=== PATIENT | female | born 1975 | race Two or more races ===

== ENCOUNTER 2024-09-22 10:35 | Emergency (ER) | payer MEDICAID, SELFPAY ==
[2024-09-22 10:55] VITALS: BP 122/83; PULSE 100; RESP 20; TEMP 36.9; O2SAT 96; BMI 39.6
--- NOTE | 2024-09-22 11:16 | PD.EDRME ---
Rapid Medical Screening Exam RME Arrival date/time: 09/22/24 10:35 Chief Complaint: Abdominal Pain Time Seen by Provider: 09/22/24 10:56 Vital signs: Vital Signs Temperature 98.5 F 09/22/24 10:55 Pulse Rate 100 09/22/24 10:55 Respiratory Rate 20 09/22/24 10:55 Blood Pressure 122/83 09/22/24 10:55 Pulse Oximetry (%) 96 09/22/24 10:55 Oxygen Delivery Method Room Air 09/22/24 10:55 Vital signs reviewed by provider: Yes RME Narrative: 49-year-old female with past medical history of GERD presents for evaluation of right upper quadrant pain x3 days. She describes as sharp with radiation to her pelvic region. She endorses nausea without emesis. Denies history of gallbladder disorder.
--- NOTE | 2024-09-22 11:40 | PC.NURSE ---
NO ANSWER IN LOBBY
--- NOTE | 2024-09-22 12:00 | PC.NURSE ---
NO ANSWER IN LOBBY
--- NOTE | 2024-09-22 12:08 | PC.NURSE ---
NO ANSWER IN LOBBY X3
== END 2024-09-22 12:12 | disposition left against medical advice (07) ==
PROVIDERS: Emergency Provider Emergency Medicine; PCP Physician Assistant
DX: R10.11 Right upper quadrant pain (principal); R11.0 Nausea; Z53.29 Procedure and treatment not carried out because of patient's decision for other reasons
CPT/HCPCS: 80053; 81001; 81025; 83690; 85025; 99281

== ENCOUNTER 2024-11-25 13:25 | Emergency (ER) | payer MEDICAID, SELFPAY ==
[2024-11-25 13:53] VITALS: BP 116/81; PULSE 94; RESP 20; TEMP 36.9; O2SAT 98; BMI 38.0
--- NOTE | 2024-11-25 14:21 | XR_ITS ---
Examination: Lumbar spine 3 views Technique one AP lateral coned lateral lower lumbar spine 3 views Exam date and time: November 25, 2024 1504 hours INDICATIONS: Low back pain beginning this morning. FINDINGS: Adequate alignment lumbar vertebral bodies No lumbar fracture Diffuse [id number]-gh-[id number] lumbar degenerative disc disease, most severe at L4-L5 No spondylolisthesis IMPRESSION: Diffuse [id number]-[id number] lumbar degenerative disc disease, most prominent L4-L5
--- NOTE | 2024-11-25 14:22 | EDNOTE_ITS ---
ED Back Injury Pain RME/HPI General Chief Complaint: Back Pain/Injury Stated Complaint: RIGHT LOWER BACK PAIN RAD TO RLQ ABD Time Seen by Provider: 11/25/24 14:19 Arrival date/time: 11/25/24 13:25 49-year-old female with no history of chronic back pain or renal stones reports with complaints of right-sided lower back pain that began this morning. Patient denies any injury heavy lifting pushing or pulling dysuria urinary urgency frequency or hematuria. Patient also denies taking any medications for the pain Limitations: no limitations Related Data Home Medications ?Medication ?Instructions ?Recorded ?Confirmed Amitriptyline Hcl 25 mg PO QDAY ##30 02/15/17 03/29/19 Pantoprazole Sodium 40 mg PO QDAY ##30 02/15/17 03/29/19 baclofen 20 mg tablet 20 mg PO TID ##90 02/15/17 03/29/19 loratadine 10 mg tablet 10 mg PO QDAY ##30 02/15/17 03/29/19 sumatriptan succinate 100 mg tablet 100 mg PO QDAY PRN HEADACHE 02/15/17 03/29/19 (MIGRAINE) ##9 topiramate 25 mg tablet 25 mg PO HS ##60 02/15/17 03/29/19 Previous Rx's ?Medication ?Instructions ?Recorded loratadine 10 mg tablet (Claritin) 10 mg PO QDAY PRN allergy symptoms 03/29/19 #20 tabs prednisolone sodium phosphate 10 10 mg PO QAM #3 tabs 03/29/19 mg disintegrating tablet ibuprofen 600 mg tablet 600 mg PO Q8H PRN fever or pain 03/13/24 #20 tabs Allergies Allergy/AdvReac Type Severity Reaction Status Date / Time No Known Allergies Allergy Verified 09/22/24 10:36 Review of Systems Constitutional Constitutional: Denies chills and Denies fever(s) Gastrointestinal Gastrointestinal: Denies abdominal pain, Denies nausea and Denies vomiting Genitourinary Genitourinary: Denies abnormal menses, Denies difficulty voiding, Denies dysuria, Reports flank pain, Denies hematuria and Denies pelvic pain Musculoskeletal Musculoskeletal: Reports back pain, Denies deformity, Denies numbness and Denies tingling Integumentary/Breasts Skin/Breast: Denies rash and Denies skin pain Neurologic Neurologic: Denies numbness and Denies tingling Hematologic/Lymphatic Hematologic/Lymphatic: Denies easy bleeding and Denies easy bruising Past Medical History Past Medical History CARDIAC: Negative Congestive Heart Failure RESPIRATORY: Negative Chronic Obstructive Pulmonary Disease (COPD) GENITOURINARY: Negative Renal Disease ENDOCRINE: Negative Diabetes Mellitus Type 1 or Diabetes Mellitus Type 2 Social History SMOKING STATUS: Light (< 1 pack/day) ED Exam General Limitations: Present no limitations General appearance: Present alert and in no apparent distress Abdominal Exam Abdominal exam: Present soft and normal bowel sounds Extremities Exam Extremities exam: Present normal inspection and full ROM Back Exam Back exam: Present normal inspection, full ROM, tenderness (Approximately L4-L5 right side extending along sciatic nerve to right pelvis) and straight leg raise (R); Absent CVA tenderness (R), CVA tenderness (L) or straight leg raise (L) Neurological Exam Neurological exam: Present alert, oriented X3 and CN II-XII intact Psychiatric Psychiatric exam: Present normal affect and normal mood Skin Skin exam: Present warm, dry, intact and normal color Course Course Course Narrative: 49-year-old female reports with complaints of lower back pain. X-ray of the lumbar spine shows some disc degeneration but otherwise unremarkable x-ray, urinalysis is negative for evidence of infection. Patient stable nontoxic- appearing with stable vital signs will be discharged home with pain medication and advised follow-up primary care provider. Quality Measures none Orders Category Date Time Status XR lumbar spine 2-3V Stat Exams 11/25/24 14:21 Completed UA, C/S IF [Urinalysis, C/S if Indicated] Stat Lab 11/25/24 15:06 Completed Vital Signs Vital signs: Vital Signs Temperature 98.5 F 11/25/24 13:53 Pulse Rate 94 11/25/24 13:53 Respiratory Rate 20 11/25/24 13:53 Blood Pressure 116/81 11/25/24 13:53 Pulse Oximetry (%) 98 11/25/24 13:53 Oxygen Delivery Method Room Air 11/25/24 13:53 Back Pain / Injury Patient data External records reviewed:: None Clinical information provided by:: patient Social determinants that could affect healthcare access:: none Patient has the following chronic illnesses:: none How is presenting disease/condition affected by chronic disease/condition?: no chronic disease Evaluation data The following diagnostics were reviewed and interpreted by me:: radiology exam(s) Lab and/or radiology exams considered but not ordered:: degenerative disc Interpretation Summary: Degenerative disc disease Medications / Prescriptions Medications or Prescriptions considered but not ordered:: none Medication administrations:: None Consultations Consultation(s) initiated? (list below): No Diagnosis Most likely diagnosis given after review of the tests above:: lumbar strain Admission Indicated Admission indicated?: not indicated Admission Request Was there a request for admission?: No Disposition Plan Disposition Plan: Discharge Discharge Attestation Discharge Attestation: The patient and all family members were given an opportunity to ask questions and understood the discharge instructions. Discharge instructions specifically effects, indications for sooner follow up or return to the emergency department, and the expected course of current diagnosis. Patient condition: Stable Discharge Plan Plan Patient Disposition: HOME (Self Care) Prescriptions/Referrals Prescriptions/Med Rec: No Action Amitriptyline Hcl 25 MG tablet 25 mg PO QDAY Qty: 30 sumatriptan succinate 100 MG tablet 100 mg PO QDAY PRN (Reason: HEADACHE (MIGRAINE)) Qty: 9 topiramate 25 MG tablet 25 mg PO HS Qty: 60 baclofen 20 MG tablet 20 mg PO TID Qty: 90 loratadine 10 MG tablet 10 mg PO QDAY Qty: 30 Pantoprazole Sodium 40 MG TABLET.DR 40 mg PO QDAY Qty: 30 loratadine [Claritin] 10 mg tablet 10 mg PO QDAY PRN (Reason: allergy symptoms) Qty: 20 0RF prednisolone sodium phosphate 10 mg tablet,disintegrating 10 mg PO QAM Qty: 3 0RF ibuprofen 600 mg tablet 600 mg PO Q8H PRN (Reason: fever or pain) Qty: 20 0RF Referrals: Hugo Pickard PA-C [Primary Care Provider] - In 1 week Problem List Clinical Impression: DDD (degenerative disc disease), lumbar, Acute lumbar myofascial strain Patient/Caregiver Discharge Instructions Discharge Activity: activity as tolerated Education Materials: ED Degenerative Disk Disease Additional Instructions: Take gwaz-yzn-[id number] medications as ibuprofen or Tylenol as needed for pain follow-up with primary care provider if no improvement in 3 days Print Language: Belarusian Stand Alone Forms: Vilma Award Info., Patient Portal Info Letter
[2024-11-25 15:29] LABS: Collection Type, Urine Clean Catch
[2024-11-25 15:41] LABS: Bilirubin,Urine Negative (Negative); Blood,Urine Negative (Negative); Clarity,Urine Clear (Clear/Hazy); Color,Urine Lt-Yellow (Lt Yel-Yel); Culture Indicated,Urine Not Indicated; Glucose, Urine Negative (Negative); Ketones,Urine Negative (Negative); Leukocyte Esterase,Urine Negative (Negative); Nitrite,Urine Negative (Negative); PH,Urine 6.5 (5.0-7.0); Protein,Urine Negative (Neg - Trace); RBC,Urine 2 /hpf (0-3); Specific Gravity,Urine 1.012 (1.001-1.035); Squamous Epithelial Cell,Urine 2 /hpf (0-5); Urobilinogen,Urine Negative mg/dL (0.0-1.0); WBC,Urine 1 /hpf (0-5)
== END 2024-11-25 17:00 | disposition home or self-care (01) ==
PROVIDERS: Physician Assistant; Emergency Provider Emergency Medicine; PCP Physician Assistant
DX: S39.012A Strain of muscle, fascia and tendon of lower back, initial encounter (principal); M51.360 Other intervertebral disc degeneration, lumbar region with discogenic back pain only; X58.XXXA Exposure to other specified factors, initial encounter
CPT/HCPCS: 72100; 81001; 99283

== ENCOUNTER 2025-08-09 05:50 | Emergency (ER) | payer MEDICAID, SELFPAY ==
[2025-08-09 05:51] VITALS: BMI 43.4
[2025-08-09 06:02] VITALS: BP 111/77; PULSE 99; RESP 19; TEMP 36.6; O2SAT 98
--- NOTE | 2025-08-09 06:20 | EDNOTE_ITS ---
ED Back Injury Pain RME/HPI General Chief Complaint: Back Pain/Injury Stated Complaint: RIGHT LOWER BACK PAIN RADIATING TO HIP Time Seen by Provider: 08/09/25 06:07 Arrival date/time: 08/09/25 05:50 RME / HPI RME / HPI Narrative: 50-year-old female with a past medical history of disc herniation noted on MRI earlier this year who is complaining of increased pain similar nature to her typical pain after moving some furniture 2 weeks ago. Pain is worse with bending over. Patient states she has tried her baclofen which her doctor has prescribed her for this without relief and she has a follow-up appointment with her doctor this coming week. Patient was doing physical therapy about 3 months ago with minimal relief. Denies any numbness, tingling, weakness, urinary or stool retention or incontinence, fever, vomiting, dysuria, frequency, urgency, burning with urination. Related Data Home Medications ?Medication ?Instructions ?Recorded ?Confirmed Amitriptyline Hcl 25 mg PO QDAY ##30 02/15/17 03/29/19 Pantoprazole Sodium 40 mg PO QDAY ##30 02/15/17 03/29/19 baclofen 20 mg tablet 20 mg PO TID ##90 02/15/17 0 03/29/19 loratadine 10 mg tablet 10 mg PO QDAY ##30 02/15/17 03/29/19 sumatriptan succinate 100 mg tablet 100 mg PO QDAY PRN HEADACHE 02/15/17 03/29/19 (MIGRAINE) ##9 topiramate 25 mg tablet 25 mg PO HS ##60 02/15/17 Previous Rx's ?Medication ?Instructions ?Recorded loratadine 10 mg tablet (Claritin) 10 mg PO QDAY PRN a llergy symptoms 03/29/19 #20 tabs prednisolone sodium phosphate 10 10 mg PO QAM #3 tabs 03/29/19 mg disintegrating tablet ibuprofen 600 mg tablet 600 mg PO Q8H PRN fever or p ain 03/13/24 #20 tabs methylprednisolone 4 mg tablets in 4 mg PO QAM #21 tab s 08/09/25 a dose pack (Medrol (Félix)) Allergies Allergy/AdvReac Type Severity Reaction Status Date / Time No Known Allergies Allergy Verified 08/09/25 05:50 ED Exam Narrative Physical exam: Constitutional: Patient alert and oriented. Well appearing. No acute distress. Not toxic appearing. Head: Normocephalic, atraumatic. Eyes: Conjunctiva clear bilaterally. Mouth/Throat: Mucous membranes moist. No stridor or muffled voice. Handling secretions without difficulty. Neck: Supple. Trachea midline. No JVD. No nuchal rigidity. No midline tenderness or step-offs. Normal range of motion. Respiratory: Normal effort. Lungs clear to auscultation bilaterally without rhonchi, wheezes, or crackles. Cardiovascular: RRR. Normal S1/S2. No murmurs or rubs. Radial pulses intact bilaterally. Abdomen: Soft. Non-distended. Non-tender throughout. No pulsatile mass. No guarding or rebound. Back: No midline tenderness or step-offs. No CVA tenderness bilaterally. Positive right sided paralumbar tenderness to palpation. Upper Extremities: No gross deformities. No focal motor deficits bilaterally. Lower Extremities: Heel-toe gait intact without difficulty. Deep tendon reflexes 2+ symmetric for lower extremities bilaterally. No gross deformities. No edema or calf tenderness. No focal motor or sensory deficits bilaterally. Neuro: Speech normal. CN II?XII grossly intact. GCS 15. Skin: Warm, dry, normal color. Psych: Normal affect. Cooperative. Normal insight. Course Course Course Narrative: MDM: Musculoskeletal Low Back Pain This patient presents with acute low back pain most consistent with musculoskeletal strain or spasm. Pain is localized without radiation, paresthesia, or weakness. No bowel or bladder incontinence.No acute neurologic d eficits. Doubt cauda equina syndrome, spinal cord compression, infection, trauma, malignancy, dissection, or nephrolithiasis based on history, exam, and absence of red flag symptoms. Doubt renal colic, pyelonephritis, or obstructive uropathy?pain localized to lower back without flank radiation or CVA tenderness. Advanced imaging (CT/MRI) considered but not indicated given absence of neurologic deficits or high-risk features. Plan: Symptomatic management with nsaids,steroids, stretching, and activity as tolerated. Discussed medication precautions and return precautions for worsening pain, fever, new weakness, numbness, or bowel/bladder changes. Advised follow-up with PCP within 1?2 days for reassessment. UA not obtained as pt states no urinary symptoms and had a negative UA at onset of pain when seen by her PMD; no systemic symptoms. Quality Measures none Orders Category Date Time Status Acetaminophen Tab [Tylenol Tab] Med 08/09/25 06:18 Discontinued 650 mg PO X1 ONE Ibuprofen Tab [Motrin Tab] Med 08/09/25 06:18 Discontinued 600 mg PO X1 ONE Lidocaine 5% Patch Med 08/09/25 06:18 Discontinued 1 patch TOP X1 ONE Reevaluation(s) Reevaluation #1: At the time of reassessment, the patient remains alert and oriented ?3 with GCS 15. Vitals are normal, pain is controlled, and the patient is tolerating oral intake without nausea or vomiting. The patient is agreeable to discharge and v erbalizes understanding of the diagnosis, studies, treatment plan, medications (including side effects/precautions), and strict ER return precautions as discussed in the ED. All concerns were addressed, and the patient is comfortable with the plan. Vital Signs Vital signs: Vital Signs Temperature 97.8 F 08/09/25 06:02 Pulse Rate 99 08/09/25 06:02 Respiratory Rate 19 08/09/25 06:02 Blood Pressure 111/77 08/09/25 06:02 Pulse Oximetry (%) 98 08/09/25 06:02 Oxygen Delivery Method Oxy Mask 08/09/25 06:02 Back Pain / Injury Patient data External records reviewed:: None Clinical information provided by:: patient Social determinants that could affect healthcare access:: none Patient has the following chronic illnesses:: As noted How is presenting disease/condition affected by chronic disease/condition?: exacerbated by Evaluation data The following diagnostics were reviewed and interpreted by me:: other (specify) Lab and/or radiology exams considered but not ordered:: Labs and radiology considered, but not ordered as they were not clinically indicated at this time. Interpretation Summary: As noted Medications / Prescriptions Medications or Prescriptions considered but not ordered:: As noted Medication administrations:: Medication Administration History Discontinued Medications Acetaminophen (Acetaminophen 325 Mg Tablet) 650 mg PO X1 ONE Stop: 08/09/25 06:19 Last Admin: 08/09/25 07:21 Dose: 650 mg Documented By: ED Ibuprofen (Ibuprofen Tab 600 Mg Tablet) 600 mg PO X1 ONE Stop: 08/09/25 06:19 Last Admin: 08/09/25 07:22 Dose: 600 mg Documented By: ED Lidocaine (Lidocaine 5% 1 Patch) 1 patch TOP X1 ONE Stop: 08/09/25 06:19 Last Admin: 08/09/25 07:23 Dose: 1 patch Documented By: ED As noted Consultations Consultation(s) initiated? (list below): No Diagnosis Most likely diagnosis given after review of the tests above:: Back pain Admission Indicated Admission indicated?: not indicated Admission Request Was there a request for admission?: No Disposition Plan Disposition Plan: Discharge Discharge Attestation Discharge Attestation: The patient and all family members were given an opportunity to ask questions and understood the discharge instructions. Discharge instructions specifically effects, indications for sooner follow up or return to the emergency department, and the expected course of current diagnosis. Patient condition: Stable Discharge Plan Plan Patient Disposition: HOME (Self Care) Patient condition on transfer: Stable Prescriptions/Referrals Prescriptions/Med Rec: New methylprednisolone [Medrol (Félix)] 4 mg tablets,dose pack 4 mg PO QAM Qty: 21 0RF No Action Amitriptyline Hcl 25 MG tablet 25 mg PO QDAY Qty: 30 sumatriptan succinate 100 MG tablet 100 mg PO QDAY PRN (Reason: HEADACHE (MIGRAINE)) Qty: 9 topiramate 25 MG tablet 25 mg PO HS Qty: 60 baclofen 20 MG tablet 20 mg PO TID Qty: 90 loratadine 10 MG tablet 10 mg PO QDAY Qty: 30 Pantoprazole Sodium 40 MG TABLET.DR 40 mg PO QDAY Qty: 30 loratadine [Claritin] 10 mg tablet 10 mg PO QDAY PRN (Reason: allergy symptoms) Qty: 20 0RF prednisolone sodium phosphate 10 mg tablet,disintegrating 10 mg PO QAM Qty: 3 0RF ibuprofen 600 mg tablet 600 mg PO Q8H PRN (Reason: fever or pain) Qty: 20 0RF Problem List Clinical Impression: Back pain Patient/Caregiver Discharge Instructions Education Materials: Back Basics: A Healthy Spine Additional Instructions: Follow up with your primary medical doctor within 24 hours. Return to the Emergency Room immediately for any new, worsening, continuing symptoms or any concerns at all. Return to the Emergency Room within 24 hours if you are unable to follow up with your primary medical doctor within 24 hours. Print Language: Libyan Stand Alone Forms: Vilma Award Info., Patient Portal Info Letter PA/SILK SCREENER Supervising Physician PA/SILK SCREENER Supervising Physician: Dr. Phipps
[2025-08-09] MEDS: ACETAMINOPHEN 325 MG TABLET 650 MG PO (07:21)
[2025-08-09] MEDS: IBUPROFEN TAB 600 MG TABLET PO (07:22)
[2025-08-09] MEDS: LIDOCAINE 5% 1 PATCH TOP (07:23)
== END 2025-08-09 07:36 | disposition home or self-care (01) ==
LOC: SERX 06:58
PROVIDERS: Emergency Provider Family Medicine; PCP Physician Assistant
DX: M54.9 Dorsalgia, unspecified (principal)
CPT/HCPCS: 99283; J3490; A9270